=== PATIENT | male | born 1970 | race Hispanic/Latino ===

== ENCOUNTER 2018-01-11 22:38 | Emergency (ER) | payer BC ==
[2018-01-11] MEDS ORDERED: ASPIRIN PO ONE (23:09)
[2018-01-11 23:29] LABS: Basophils % (Auto) 0.3 % (0.0-1.8); Eosinophils # (Auto) 0.1 K/mm3 (0.0-0.4); Eosinophils % (Auto) 1.7 % (0.0-4.3); Hematocrit 48.9 % (35.5-45.6); Hemoglobin 16.4 gm/dl (11.8-15.2); Lymphocytes # (Auto) 2.4 K/mm3 (1.2-5.4); Mean Corpuscular HGB Conc 34 % (32-34); Mean Corpuscular Hemoglobin 29 pg (28-32); Mean Corpuscular Volume 87 fl (84-94); Monocytes # (Auto) 0.4 K/mm3 (0.0-0.8); Monocytes % (Auto) 4.9 % (0.0-7.3); Platelet Count 279 K/mm3 (140-440); Red Blood Count 5.62 M/mm3 (3.65-5.03); Red Cell Distribution Width 13.1 % (13.2-15.2)
[2018-01-12 00:10] LABS: BUN/Creatinine Ratio 17; Blood Urea Nitrogen 15 mg/dL (9-20); Calcium 9.4 mg/dL (8.4-10.2); Hemolysis Index 7
--- NOTE | 2018-01-12 02:29 | Emergency Department Report ---
ED Palpitations HPI - General Chief Complaint: Arrhythmia/Palpitations Stated Complaint: CHEST PAIN Time Seen by Provider: 01/12/18 00:11 Source: patient, EMS Mode of arrival: Stretcher Limitations: No Limitations - History of Present Illness Initial Comments: Patient with history of patent foramen ovale had a workup in [place] previously for palpitations. He is on a rB. He is here saying that he was on a flight from [place] to [facility] and experienced approximately 5 hours it is hard skipping. He denied syncope chest pain he denied any other complaints he does drink frequently he has several scotches every night. As well as a lot of heavy coffee drinking. No fever no chest pain or swelling shortness of breath here for evaluation of intermittent palpitations that have now resolved MD Complaint: rapid heart beat, "heart racing", "skipped beats", palpitations, irregular heart beat -: Gradual, This evening, unknown Context: occured during rest Arrythmia History: other (workup in [place] with an echocardiogram for likely PVCs) Associated Symptoms: denies other symptoms. denies: chest pain, shortness of breath, syncope, near-syncope, nausea/vomiting, anxiety, diaphoresis, cough, parasthesias, feeling of impending doom, muscle cramps - Related Data Previous Rx's Medication Instructions Recorded Last Taken Type Metoprolol Succinate [Toprol Xl] 100 mg PO DAILY #15 tab.er.24h 01/12/18 Unknown Rx Allergies Allergy/AdvReac Type Severity Reaction Status Date / Time No Known Allergies Allergy Verified 01/12/18 00:13 ED Review of Systems ROS: Stated complaint: CHEST PAIN Other details as noted in HPI Comment: All other systems reviewed and negative Constitutional: denies: diaphoresis, fever, malaise Respiratory: no symptoms reported. denies: cough, orthopnea, shortness of breath, SOB with exertion, SOB at rest, stridor, wheezing Cardiovascular: palpitations. denies: chest pain, orthopnea, edema, syncope, paroxysmal nocturnal dyspnea Endocrine: denies: excessive sweating, flushing Gastrointestinal: denies: abdominal pain, nausea, vomiting, diarrhea, constipation, hematemesis, melena, hematochezia Musculoskeletal: denies: joint swelling, arthralgia, myalgia Neurological: denies: headache, weakness, numbness, paresthesias, confusion, abnormal gait, vertigo Psychiatric: denies: auditory hallucinations, visual hallucinations, homicidal thoughts, suicidal thoughts ED Past Medical Hx - Past Medical History Previous Medical History?: Yes Hx Hypertension: Yes - Surgical History Past Surgical History?: No - Social History Smoking Status: Never Smoker Substance Use Type: Prescribed - Medications Home Medications: Home Medications Medication Instructions Recorded Confirmed Last Taken Type Metoprolol Succinate [Toprol Xl] 100 mg PO DAILY #15 tab.er.24h 01/12/18 Unknown Rx ED Physical Exam - General Limitations: No Limitations General appearance: alert, in no apparent distress, anxious - Head Head exam: Present: atraumatic, normocephalic - Eye Eye exam: Present: normal appearance, PERRL, EOMI - ENT ENT exam: Present: normal exam, normal orophraynx - Neck Neck exam: Present: normal inspection. Absent: tenderness, meningismus, full ROM, lymphadenopathy, thyromegaly - Respiratory Respiratory exam: Present: normal lung sounds bilaterally. Absent: respiratory distress, wheezes, rales, rhonchi, stridor, chest wall tenderness, accessory muscle use, decreased breath sounds, prolonged expiratory - Cardiovascular Cardiovascular Exam: Present: regular rate, normal rhythm, normal heart sounds - GI/Abdominal GI/Abdominal exam: Present: soft, tenderness, guarding, rebound, rigid - Extremities Exam Extremities exam: Present: normal inspection, normal capillary refill. Absent: pedal edema, joint swelling, calf tenderness - Neurological Exam Neurological exam: Present: alert, oriented X3, CN II-XII intact. Absent: motor sensory deficit - Psychiatric Psychiatric exam: Present: normal affect, normal mood. Absent: homicidal ideation, suicidal ideation ED Course Vital Signs 01/11/18 01/11/18 01/11/18 22:59 23:00 23:05 Temperature 97.6 F Pulse Rate 110 H Respiratory Rate Blood Pressure Blood Pressure [Left] O2 Sat by Pulse 96 97 Oximetry 01/11/18 01/11/18 01/11/18 23:15 23:21 23:26 Temperature 98.5 F Pulse Rate 98 H 93 H 93 H Respiratory 28 H 23 Rate Blood Pressure 153/91 Blood Pressure 153/91 [Left] O2 Sat by Pulse 98 99 Oximetry 01/11/18 01/11/18 01/11/18 23:30 23:45 23:49 Temperature Pulse Rate 88 99 H 112 H Respiratory 23 24 28 H Rate Blood Pressure 150/91 150/91 150/91 Blood Pressure [Left] O2 Sat by Pulse 96 98 96 Oximetry 01/12/18 01/12/18 01/12/18 00:00 00:01 00:15 Temperature Pulse Rate 99 H 92 H 94 H Respiratory 19 18 20 Rate Blood Pressure 138/84 138/84 138/84 Blood Pressure [Left] O2 Sat by Pulse 98 97 95 Oximetry 01/12/18 01/12/18 01/12/18 00:18 00:30 00:46 Temperature Pulse Rate 108 H 100 H 100 H Respiratory 18 14 27 H Rate Blood Pressure 138/84 150/84 138/84 Blood Pressure [Left] O2 Sat by Pulse 97 97 96 Oximetry 01/12/18 01/12/18 01/12/18 01:00 01:16 01:30 Temperature Pulse Rate 93 H 99 H 100 H Respiratory 19 18 19 Rate Blood Pressure 139/78 139/78 145/102 Blood Pressure [Left] O2 Sat by Pulse 97 97 98 Oximetry 01/12/18 01:46 Temperature Pulse Rate 97 H Respiratory 27 H Rate Blood Pressure 139/78 Blood Pressure [Left] O2 Sat by Pulse 97 Oximetry ED Medical Decision Making - Lab Data Result diagrams: 01/11/18 23:16 01/11/18 23:16 - EKG Data -: EKG Interpreted by Me EKG shows normal: sinus rhythm Rate: normal - EKG Data Interpretation: no acute changes 01/12/18 02:44 No acute ischemic change is unsure from the field does likely show atrial flutter EKG here showed sinus with PVCs with some ventricular bigeminy - Medical Decision Making Case was discussed Dr. Melendez of similar hard he states swallowing started on Toprol beta safia echo down on his ARB patient was amenable to this I will give him follow-up with [facility] he will need to see them or his regular doctor he currently is asymptomatic to laboratory studies were unremarkable in consultation with cardiology and we did feel that it was safe to discharge the patient he already does take an aspirin he does not have any sustained evidence of atrial fibrillation or flutter that would warrant further emergent treatment at this time he was advised to avoid alcohol and caffeine to 911 or return immediately if worse Critical care attestation.: If time is entered above; I have spent that time in minutes in the direct care of this critically ill patient, excluding procedure time. ED Disposition Clinical Impression: Palpitations Disposition: DC-01 TO HOME OR SELFCARE Is pt being admited?: No Condition: Stable Instructions: Atrial Tachycardia (ED), Palpitations (ED) Additional Instructions: She is a doctor listed , return immediately if new or alarming symptoms, started the new medicine and halve your current Cozaar Prescriptions: Metoprolol Succinate [Toprol Xl] 100 mg PO DAILY #15 tab.er.24h Referrals: TERENCE HENRIQUEZ MD [Staff Physician] - 3-5 Days Time of Disposition: 02:48
--- NOTE | 2018-01-12 02:55 | XRay Report ---
FINAL REPORT EXAM: XR CHEST 1V AP HISTORY: palpitations TECHNIQUE: A single view of the chest was submitted. FINDINGS: The heart size and mediastinum appear normal. The lungs are clear. The lungs are not congested. Pleural fluid is not seen. The skeletal structures are well-maintained. IMPRESSION: No active chest disease.
[2018-01-12] MEDS ORDERED: TOPROL XL PO ONE (03:27)
[2018-01-12 04:12] VITALS: BP 133/86
== END 2018-01-12 04:14 | disposition home or self-care (01) ==
LOC: ED 22:38
DX: R00.2 Palpitations (principal); I10 Essential (primary) hypertension
CPT/HCPCS: 36415; 71045; 80048; 83735; 84484; 85025; 85379; 93005; 93010; 99285